=== PATIENT | female | born 1930 | race Caucasian/White ===

== ENCOUNTER 2018-12-16 13:31 | Observation (INO) | payer OTHER, MEDICARE ==
[2018-12-16 14:36] LABS: Absolute Lymphocytes (CBC) 1.6 K/uL (0.7-4.9); Absolute Neutrophil 5.3 K/uL (1.8-8.0); Basophils % 0.4 % (0-1.3); Eosinophils % 3.5 % (0-4.4); Hematocrit 35.3 % (36.0-45.0); Lymphocytes % 19.4 % (15.3-44.8); MPV 8.2 fL (7.6-11.3); Monocytes % 12.1 % (3.3-12.3); RBC Red Blood Cell Count 3.72 M/uL (3.86-4.86)
[2018-12-16] MEDS ORDERED: FAMOTIDINE 20 MG/2 ML VIAL IV ONE (14:43)
[2018-12-16] MEDS ORDERED: NA CHLORIDE 0.9% 500 ML ONE (14:43)
[2018-12-16] MEDS ORDERED: ONDANSETRON 4 MG/2 ML VIAL ONE (14:43)
[2018-12-16 14:49] LABS: Protime INR 1.06
--- NOTE | 2018-12-16 14:49 | RAD REPORT ---
EXAM DESCRIPTION: RAD - Chest Single View - 12/16/2018 2:40 pm CLINICAL HISTORY: CHEST PAIN Chest pain. COMPARISON: No comparisons FINDINGS: Portable technique limits examination quality. Mild interstitial pulmonary edema seen. The heart is normal in size. No displaced fractures. IMPRESSION: Mild interstitial pulmonary edema.
[2018-12-16 14:55] LABS: ALT/SGPT 12 U/L (12-78); AST/SGOT 23 U/L (15-37); Albumin 3.1 g/dL (3.4-5.0); Alkaline Phosphatase 70 U/L (45-117); BUN Blood Urea Nitrogen 26 mg/dL (7-18); Bicarbonate 23 mmol/L (21-32); Bilirubin Direct 0.1 mg/dL (0-0.2); Bilirubin Total 0.4 mg/dL (0.2-1.0); Glucose Level 108 mg/dL (74-106); Lipase 84 U/L (73-393); Magnesium 2.2 mg/dL (1.8-2.4); NT PRO-BNP 104 pg/mL (<450); Potassium 4.2 mmol/L (3.5-5.1); Protein, Total 7.8 g/dL (6.4-8.2); Sodium Level 139 mmol/L (136-145); Troponin (Emerg Dept Use Only) < 0.02 ng/mL (0.0-0.045)
--- NOTE | 2018-12-16 15:01 | RAD REPORT ---
EXAM DESCRIPTION: US - Abdomen Exam Limited - 12/16/2018 2:51 pm CLINICAL HISTORY: bilious emesis COMPARISON: No comparisons FINDINGS: The gallbladder demonstrates no gallstones. No pericholecystic fluid or gallbladder wall t hickening. The common bile duct is normal measuring 3 mm. The liver demonstrates no findings of intrahepatic biliary dilatation. IMPRESSION: Unremarkable examination.
--- NOTE | 2018-12-16 15:29 | RAD REPORT ---
EXAM DESCRIPTION: CT - Abdomen Pelvis Wo Contrast - 12/16/2018 2:59 pm CLINICAL HISTORY: Abdominal pain, bilious emesis COMPARISON: None. TECHNIQUE: Axial [address] imaging of the abdomen and pelvis was performed without IV contrast. No IV contrast was given because of allergy, abnormal renal function, patient refusal or physician re quest. No oral contrast given. All CT scans are performed using dose optimization technique as appropriate and may include automated exposure control or mA/KV adjustment according to patient size. FINDINGS: Prominent fibrotic lung changes are present at each base. No acute lung base finding. No p ericardial thickening or effusion. A large hiatal hernia is present with approximately 40% of the sto mach intrathoracic. Gastric wall assessment is precluded in the herniated portion. The liver, spleen and pancreas show no suspicious findings on non-contrast imaging. Gallbladder and b iliary tree are also without suspicious finding. Benign granulomatous calcifications are present. No hydronephrosis or suspicious renal mass. Upper pole left renal cyst is present. No significant adr enal finding. Isodense renal masses and pyelonephritis cannot be excluded in the absence of IV contra st. The urinary bladder is without significant finding. Herniated portion of the stomach cannot be accurately assessed. Distal stomach shows no wall thickeni ng or mass. No acute small bowel finding. Cecum is low-lying in the pelvic floor distended by a large amount of stool. Right-side colon overall is distended by a large stool volume. Prominent diverticul osis present without diverticulitis. No free air, free fluid or inflammatory stranding. No hernia, ma ss or bulky lymphadenopathy. Prominent disc and bony degenerative changes are present. There is subluxation of L4 due to facet deg enerative change. L4-5 spinal stenosis is present. IMPRESSION: Gallbladder and biliary tree show no suspicious findings. No pancreatic acute process on noncontrast imaging. No abnormality seen to explain bilious emesis. Large stool volume distends the cecum and right side colon. Left-sided diverticulosis present without diverticulitis. Large hiatal hernia with 40% of the stomach intrathoracic. The herniated portion of the stomach is no t accurately assessed. No free air or other surgically emergent finding. Full assessment is limited is the absence of IV contrast.
--- NOTE | 2018-12-16 16:16 | EDPHYS ---
Physician Documentation [facility] Name: Sujey Huerta Age: 88 yrs Sex: Female : 1930 Arrival Date: 12/16/2018 Time: 13:33 Bed 5 Private MD: ED Physician Humberto Barbour HPI: 12/16 15:59 This 88 yrs old Female presents to ER via EMS with complaints of Back Pain, wa Nausea/Vomiting. 15:59 The patient presents with pain that is acute, with no known mechanism of injury, c/o wa back spasms x 3 days. also vomiting yellowish material (calls it 'bile' but describes color as yellow with bitter taste. denies abd pain to me. . The symptoms are located in the upper and lower back. Onset: The symptoms/episode began/occurred 3 day(s) ago. The pain does not radiate. Associated signs and symptoms: Pertinent positives: chest pain, nausea, vomiting, chest 'tightness', Pertinent negatives: abdominal pain, dysuria, fever, headache, hematuria, tingling, weakness. The problem was sustained denies trauma. Modifying factors: The patient symptoms are alleviated by nothing, the patient symptoms are aggravated by nothing. Severity of symptoms: At their worst the symptoms were moderate, in the emergency department the symptoms are unchanged. The patient has not experienced similar symptoms in the past. The patient has not recently seen a physician. Historical: - Allergies: 13:39 Iodine; tw2 - Home Meds: 13:39 levothyroxine 100 mcg tab once daily [Active]; simvastatin 20 mg Oral tab 1 tab once tw2 daily [Active]; losartan-hydrochlorothiazide 100-25 mg Oral tab 1 tab once daily [Active]; - PMHx: 13:39 Hyperlipidemia; Hypertension; Hypothyroidism; tw2 - PSHx: 13:39 Ankle (plate and screws); Appendectomy; Hysterectomy; tw2 - Immunization history:: Adult Immunizations. - Social history:: Smoking status: . - Ebola Screening: : Patient denies travel to an Ebola-affected area in the 21 days before illness onset. - Family history:: not pertinent. - Hospitalizations: : No recent hospitalization is reported. ROS: 16:03 Constitutional: Negative for fever, chills, and weight loss, Eyes: Negative for injury, wa pain, redness, and discharge, ENT: Negative for injury, pain, and discharge, Neck: Negative for injury, pain, and swelling, : Negative for injury, bleeding, discharge, and swelling, MS/Extremity: Negative for injury and deformity, Skin: Negative for injury, rash, and discoloration, Neuro: Negative for headache, weakness, numbness, tingling, and seizure, Psych: Negative for depression, anxiety, suicide ideation, homicidal ideation, and hallucinations. 16:03 Cardiovascular: Positive for chest pain, Negative for edema, orthopnea, palpitations, paroxysmal nocturnal dyspnea. 16:03 Respiratory: Negative for cough, shortness of breath. 16:03 Abdomen/GI: Positive for vomiting, Negative for abdominal pain. 16:03 Back: Positive for pain at rest, pain with movement. 16:03 All other systems are negative. Exam: 16:03 Constitutional: This is a well developed, well nourished patient who is awake, alert, wa and in no acute distress. Head/Face: Normocephalic, atraumatic. Eyes: Pupils equal round and reactive to light, extra-ocular motions intact. Lids and lashes normal. Conjunctiva and sclera are non-icteric and not injected. Cornea within normal limits. Periorbital areas with no swelling, redness, or edema. ENT: Nares patent. No nasal discharge, no septal abnormalities noted. Tympanic membranes are normal and external auditory canals are clear. Oropharynx with no redness, swelling, or masses, exudates, or evidence of obstruction, uvula midline. Mucous membranes moist. Neck: Trachea midline, no thyromegaly or masses palpated, and no cervical lymphadenopathy. Supple, full range of motion without nuchal rigidity, or vertebral point tenderness. No Meningismus. Chest/axilla: Normal chest wall appearance and motion. Nontender with no deformity. No lesions are appreciated. Cardiovascular: Regular rate and rhythm with a normal S1 and S2. No gallops, murmurs, or rubs. Normal PMI, no JVD. No pulse deficits. Respiratory: Lungs have equal breath sounds bilaterally, clear to auscultation and percussion. No rales, rhonchi or wheezes noted. No increased work of breathing, no retractions or nasal flaring. Abdomen/GI: Soft, non-tender, with normal bowel sounds. No distension or tympany. No guarding or rebound. No evidence of tenderness throughout. Back: No spinal tenderness. No costovertebral tenderness. Full range of motion. Skin: Warm, dry with normal turgor. Normal color with no rashes, no lesions, and no evidence of cellulitis. MS/ Extremity: Pulses equal, no cyanosis. Neurovascular intact. Full, normal range of motion. Neuro: Awake and alert, GCS 15, oriented to person, place, time, and situation. Cranial nerves II-XII grossly intact. Motor strength 5/5 in all extremities. Sensory grossly intact. Cerebellar exam normal. Normal gait. Psych: Awake, alert, with orientation to person, place and time. Behavior, mood, and affect are within normal limits. Vital Signs: 13:35 BP 133 / 80; Pulse 99; Resp 17; Temp 98.6(O); Pulse Ox 98% on R/A; tw2 14:34 BP 126 / 75; Pulse 95; Resp 17; Pulse Ox 100% on R/A; tw2 15:26 BP 123 / 70; Pulse 74; Resp 17; Pulse Ox 100% on R/A; tw2 16:10 BP 122 / 68; Pulse 74; Resp 17; Pulse Ox 99% on R/A; tw2 16:59 BP 116 / 73; Pulse 94; Resp 17; Pulse Ox 99% on R/A; tw2 MDM: 13:58 Patient medically screened. la 16:04 Differential diagnosis: r/o bowel obstruction. consider gastritis, gallbladder dz. wa chest tightness. r/o ACS. Data reviewed: vital signs, nurses notes. Test interpretation: by ED physician or midlevel provider: EKG: HR 88. nml axis. no acute dysrhythmic changes noted. 16:06 Test interpretation: by ED physician or midlevel provider: CT abd/pelvis: large hiatal wa hernia with 40% of stomach within the chest cavity. large stool volume causing distension cecum and R side of colon. 16:07 Test interpretation: by ED physician or midlevel provider: CXR: mild interstitial pulm wa edema. RUQ US: no gallstones. nml study. labs BUN 26. GFR 47. H/H 11.9/35.3. 16:12 Response to treatment: the patient's symptoms have markedly improved after treatment. la ED course: will admit for chest pain r/o. no vomiting at time of admit. will continue fluids. zofran prn. protonix. further cardia and GI eval. 16:14 Physician consultation: Noe Dailey MD. Admission orders: after a detailed discussion la of the patient's condition and case, the admit orders are written by me. 12/16 14:17 Order name: Basic Metabolic Panel; Complete Time: 15:10 12/16 14:17 Order name: CBC with Diff; Complete Time: 15:11 12/16 14:17 Order name: LFT's; Complete Time: 15:11 12/16 14:17 Order name: Magnesium; Complete Time: 15:11 12/16 14:17 Order name: NT PRO-BNP; Complete Time: 15:11 12/16 14:17 Order name: PT-INR; Complete Time: 15:11 12/16 14:17 Order name: Troponin (emerg Dept Use Only); Complete Time: 15:11 12/16 14:17 Order name: XRAY Chest (1 view); Complete Time: 15:11 la 12/16 14:17 Order name: Lipase; Complete Time: 15:11 12/16 14:19 Order name: US Abdomen Limited; Complete Time: 15:10 12/16 14:20 Order name: CT Abd/Pelvis - Without Cont; Complete Time: 15:56 la 12/16 16:20 Order name: Urine Microscopic Only la 12/16 16:35 Order name: Urine Dipstick--Ancillary (enter results) 12/16 16:41 Order name: Urine Dipstick-Ancillary; Complete Time: 16:51 EDMS 12/16 14:17 Order name: EKG; Complete Time: 14:18 12/16 14:17 Order name: Cardiac monitoring; Complete Time: 14:18 12/16 14:17 Order name: EKG - Nurse/Tech; Complete Time: 14:18 12/16 14:17 Order name: IV Saline Lock; Complete Time: 14:41 12/16 14:17 Order name: Labs collected and sent; Complete Time: 14:41 12/16 14:17 Order name: O2 Per Protocol; Complete Time: 14:19 12/16 14:17 Order name: O2 Sat Monitoring; Complete Time: 14:19 12/16 14:19 Order name: NPO; Complete Time: 14:28 la 12/16 14:19 Order name: Urine Dipstick-Ancillary (obtain specimen); Complete Time: 16:58 la Administered Medications: 14:30 Drug: Zofran 2 mg Route: IVP; Site: right antecubital; tw2 15:27 Follow up: Response: No adverse reaction; Nausea is decreased tw2 14:33 Drug: Pepcid 20 mg Route: IVP; Site: right antecubital; tw2 15:27 Follow up: Response: No adverse reaction tw2 14:39 Drug: NS 0.9% 500 ml Route: IV; Rate: bolus; Site: right antecubital; tw2 16:00 Follow up: Response: No adverse reaction; IV Status: Completed infusion; IV Intake: tw2 500ml 16:34 Drug: Magnesium Citrate Liquid 300 ml Route: PO; iw 17:23 Follow up: Response: No adverse reaction tw2 Disposition: 12/16/18 16:16 Hospitalization ordered by Noe Dailey for Observation. Preliminary diagnosis are Acute Chest pain, Vomiting, acute back pain. - Bed requested for Telemetry/MedSurg (observation). - Status is Observation. tw2 - Condition is Stable. - Problem is new. - Symptoms have improved. UTI on Admission? No Signatures: Dispatcher [employer] EDMS Rama Elizondo Irene, RN RN Blanca Moreno RN RN 2 Humberto Barbour MD MD la Corrections: (The following items were deleted from the chart) 16:33 16:16 Hospitalization Ordered by Noe Dailey MD for Observation. Preliminary diagnosis bd is Acute Chest pain; Vomiting; acute back pain. Bed requested for Telemetry/MedSurg (observation). Status is Observation. Condition is Stable. Problem is new. Symptoms have improved. UTI on Admission? No. wa 17:23 16:33 12/16/2018 16:16 Hospitalization Ordered by Noe Dailey MD for Observation. tw2 Preliminary diagnosis is Acute Chest pain; Vomiting; acute back pain. Bed requested for Telemetry/MedSurg (observation). Status is Observation. Condition is Stable. Problem is new. Symptoms have improved. UTI on Admission? No. bd
--- NOTE | 2018-12-16 16:16 | ER ---
Nurse's Notes [facility] Name: Sujey Huerta Age: 88 yrs Sex: Female : 1930 Arrival Date: 12/16/2018 Time: 13:33 Bed 5 Private MD: Diagnosis: Acute Chest pain;Vomiting;acute back pain Presentation: 12/16 13:33 Presenting complaint: EMS states: since Saturday pt has complained of severe low back tw2 pain and nausea, she started vomiting this morning and hasnt been able to keep anything down, and not been able to take her medicine this morning, vs stable, Hx: hypertension, hyperlipidemia, hypothroidism. Transition of care: patient was not received from another setting of care. Onset of symptoms was December 16, 2018. Risk Assessment: Do you want to hurt yourself or someone else? Patient reports no desire to harm self or others. Initial Sepsis Screen: Does the patient meet any 2 criteria? No. Patient's initial sepsis screen is negative. Does the patient have a suspected source of infection? No. Patient's initial sepsis screen is negative. Care prior to arrival: None. 13:33 Method Of Arrival: EMS: [facility] tw2 13:33 Acuity: RL 3 tw2 Triage Assessment: 13:35 General: Appears in no apparent distress. Behavior is calm, cooperative, appropriate tw2 for age. Pain: Complains of pain in left low back and right low back. EENT: No signs and/or symptoms were reported regarding the EENT system. Neuro: Level of Consciousness is awake, alert, obeys commands, Oriented to person, place, time, situation. Cardiovascular: Heart tones S1 S2 Capillary refill < 3 seconds Patient's skin is warm and dry. Respiratory: Airway is patent Respiratory effort is even, unlabored, Respiratory pattern is regular, symmetrical, Breath sounds are clear bilaterally. GI: Abdomen is round non-distended, Bowel sounds present X 4 quads. Reports nausea, vomiting. : No signs and/or symptoms were reported regarding the genitourinary system. Derm: No signs and/or symptoms reported regarding the dermatologic system. Musculoskeletal: Circulation, motion, and sensation intact. Range of motion: intact in all extremities. Historical: - Allergies: 13:39 Iodine; tw2 - Home Meds: 13:39 levothyroxine 100 mcg tab once daily [Active]; simvastatin 20 mg Oral tab 1 tab once tw2 daily [Active]; losartan-hydrochlorothiazide 100-25 mg Oral tab 1 tab once daily [Active]; - PMHx: 13:39 Hyperlipidemia; Hypertension; Hypothyroidism; tw2 - PSHx: 13:39 Ankle (plate and screws); Appendectomy; Hysterectomy; tw2 - Immunization history:: Adult Immunizations. - Social history:: Smoking status: . - Ebola Screening: : Patient denies travel to an Ebola-affected area in the 21 days before illness onset. - Family history:: not pertinent. - Hospitalizations: : No recent hospitalization is reported. Screenin:39 Abuse screen: Denies threats or abuse. Nutritional screening: No deficits noted. tw2 Tuberculosis screening: No symptoms or risk factors identified. Fall Risk Secondary diagnosis (15 points) impaired mobility. Assessment: 13:37 Reassessment: see triage assessment. Neuro: Level of Consciousness is awake, alert, tw2 obeys commands. 14:35 Reassessment: Patient appears in no apparent distress at this time. No changes from tw2 previously documented assessment. Patient and/or family updated on plan of care and expected duration. Pain level reassessed. Patient is alert, oriented x 3, equal unlabored respirations, skin warm/dry/pink. 15:26 Reassessment: Patient appears in no apparent distress at this time. No changes from tw2 previously documented assessment. Patient and/or family updated on plan of care and expected duration. Pain level reassessed. Patient is alert, oriented x 3, equal unlabored respirations, skin warm/dry/pink. 16:10 Reassessment: Patient appears in no apparent distress at this time. No changes from tw2 previously documented assessment. Patient and/or family updated on plan of care and expected duration. Pain level reassessed. Patient is alert, oriented x 3, equal unlabored respirations, skin warm/dry/pink. 17:00 Reassessment: Patient appears in no apparent distress at this time. No changes from tw2 previously documented assessment. Patient and/or family updated on plan of care and expected duration. Pain level reassessed. Patient is alert, oriented x 3, equal unlabored respirations, skin warm/dry/pink. Vital Signs: 13:35 BP 133 / 80; Pulse 99; Resp 17; Temp 98.6(O); Pulse Ox 98% on R/A; tw2 14:34 BP 126 / 75; Pulse 95; Resp 17; Pulse Ox 100% on R/A; tw2 15:26 BP 123 / 70; Pulse 74; Resp 17; Pulse Ox 100% on R/A; tw2 16:10 BP 122 / 68; Pulse 74; Resp 17; Pulse Ox 99% on R/A; tw2 16:59 BP 116 / 73; Pulse 94; Resp 17; Pulse Ox 99% on R/A; tw2 ED Course: 13:33 Patient arrived in ED. tw2 13:33 Bed in low position. Call light in reach. Side rails up X2. patient monitor on. Pulse tw2 ox on. NIBP on. Warm blanket given. 13:33 Arm band placed on. tw2 13:35 Triage completed. tw2 13:39 Blanca Moreno, JOSHUA is Primary Nurse. tw2 13:58 Humberto Barbour MD is Attending Physician. wa 14:30 Inserted saline lock: 22 gauge in right antecubital area, using aseptic technique. tw2 Blood collected. 14:39 XRAY Chest (1 view) In Process Unspecified. EDMS 14:48 EKG done, by outboard technician. reviewed by Humberto Barbour MD. tc 14:51 US Abdomen Limited In Process Unspecified. EDMS 14:59 CT Abd/Pelvis - Without Cont In Process Unspecified. EDMS 16:15 Noe Dailey MD is Hospitalizing Provider. wa 17:01 No provider procedures requiring assistance completed. Patient admitted, IV remains in tw2 place. Administered Medications: 14:30 Drug: Zofran 2 mg Route: IVP; Site: right antecubital; tw2 15:27 Follow up: Response: No adverse reaction; Nausea is decreased tw2 14:33 Drug: Pepcid 20 mg Route: IVP; Site: right antecubital; tw2 15:27 Follow up: Response: No adverse reaction tw2 14:39 Drug: NS 0.9% 500 ml Route: IV; Rate: bolus; Site: right antecubital; tw2 16:00 Follow up: Response: No adverse reaction; IV Status: Completed infusion; IV Intake: tw2 500ml 16:34 Drug: Magnesium Citrate Liquid 300 ml Route: PO; iw 17:23 Follow up: Response: No adverse reaction tw2 Intake: 16:00 IV: 500ml; Total: 500ml. tw2 Outcome: 16:16 Decision to Hospitalize by Provider. dc 17:01 Admitted to Med/surg accompanied by tech, via wheelchair, room 416, with chart, Report tw2 called to Devante<JOSHUA 17:01 Condition: stable 17:01 Instructed on the need for admit, Demonstrated understanding of 17:23 Patient left the ED. tw2 Signatures: Dispatcher [employer] Thao Wesley, JOSHUA RN iw Nereyda Sinhg, dressing machine operator EKG Blanca Carrera RN RN tw2 Humberto Barbour MD MD dc
[2018-12-16] MEDS ORDERED: MAGNESIUM CITRATE 300 ML BOT ONE (16:38)
[2018-12-16 16:41] LABS: Urine Blood TRACE (NEG); Urine Glucose NEGATIVE (NEG); Urine Protein NEGATIVE (NEG); Urine Specific Gravity 1.015 (1.005-1.030)
--- NOTE | 2018-12-16 17:23 | P.HP ---
Certification for Inpatient Patient admitted to: Observation With expected LOS: <2 Midnights Practitioner: I am a practitioner with admitting privileges, knowledge of patient current condition, hospital course, and medical plan of care. Services: Services provided to patient in accordance with Admission requirements found in Title 42 Section 412.3 of the Code of Federal Regulations Patient History Date of Service: 12/16/18 Reason for admission: Back spasms History of Present Illness: This is an 88-year-old female with history of hypertension and hypothyroid admitted for back spasms and chest pain. Per patient, she started having these back spasms on Saturday across her shoulder bilaterally and low back. She has tried taking her thyroid medicine other medications after that and she stated that she would throw up. She states that she has not eaten anything since then. She continues to have yellow vomiting, last episode this morning. No blood noted in the vomitus. States that she does not have any abdominal pain, constipation, diarrhea, hematochezia, dizziness, headache, vision changes, syncope/presyncope. She states that she has never had back spasms like this before. In the ER, she was hemodynamically stable with vital signs of 116/73, heart rate of 94, respirations of 17 and satting 99% on room air. Her labs were unremarkable. Abdominal pelvis CT with hiatal hernia with 40% stomach intrathoracic. Abdominal ultrasound was normal. A chest x-ray done in the ER showed mild interstitial pulmonary edema. At the time of my exam, patient was alert oriented x3, in no acute distress and hemodynamically stable. She denied any chest pain at this time. Stated that she continued to have the back spasms, especially when she moved. She has not received any pain medications in the ER. She states that she is a DNR. Allergies No Known Allergies Allergy (Unverified 12/23/15 13:02) Home medications list reviewed: Yes Home Medications: Amlodipine [Norvasc] 10 mg PO DAILY 12/16/18 Levothyroxine [Synthroid] 75 mcg PO [id number] 12/16/18 Lisinopril [Prinivil] 10 mg PO DAILY 12/16/18 Ropinirole HCl [Requip] 0.25 mg PO BEDTIME 12/16/18 Simvastatin 20 mg PO BEDTIME 12/16/18 Review of Systems 10-point ROS is otherwise unremarkable Physical Examination - Physical Exam General: Alert, In no apparent distress, Oriented x3 HEENT: Atraumatic, PERRLA, Mucous membr. moist/pink, EOMI, Sclerae nonicteric Neck: Supple, 2+ carotid pulse no bruit, No LAD, Without JVD or thyroid abnormality Respiratory: Clear to auscultation bilaterally, Normal air movement Cardiovascular: Regular rate/rhythm, Normal S1 S2 Gastrointestinal: Normal bowel sounds, No tenderness Musculoskeletal: No tenderness Integumentary: No rashes Neurological: Normal gait, Normal speech, Normal strength at 5/5 x4 extr, Normal tone, Normal affect Lymphatics: No axilla or inguinal lymphadenopathy - Studies Laboratory Data (last 24 hrs) 12/16/18 14:25: PT 12.5, INR 1.06 12/16/18 14:25: WBC 8.2, Hgb 11.9 L, Hct 35.3 L, Plt Count 312 12/16/18 14:25: Sodium 139, Potassium 4.2, BUN 26 H, Creatinine 1.10, Glucose 108 H, Magnesium 2.2, Total Bilirubin 0.4, AST 23, ALT 12, Alkaline Phosphatase 70, Lipase 84 Assessment and Plan - Problems (Diagnosis) (1) Chest pain Current Visit: Yes Status: Acute (2) Vomiting Current Visit: Yes Status: Acute (3) Back pain Current Visit: Yes Status: Acute (4) Hypertension Current Visit: Yes Status: Acute (5) Hypothyroid Current Visit: Yes Status: Acute (6) Hyperlipidemia Current Visit: Yes Status: Acute - Plan This is an 88-year-old female with: Chest pain, rule out. Chest pain is now resolved. Trend troponins. Will continue to monitor. Chest pain guidelines: FERNANDEZ-inhibitor, statin, aspirin. Hold beta-joycelyn at this time. May require an echo. We will see how she does prior to ordering an echo. Acute back spasms Tramadol for pain control at this time. Will get physical therapy to work with patient Hypertension Will restart home medications. Stable at this time Hypothyroid Will restart home medications. Stable at this time Hyperlipidemia Restart home statin. Stable at this time Hiatal hernia Will start Protonix oral. Will need to discuss with patient regarding surgery consulted. Unsure if patient would like any surgical intervention at this time. Patient states that she is a DNR. We will discuss further with patient and see if we need to get general surgery. Treat conservatively at this time. DVT prophylaxis: Lovenox GI prophylaxis: Protonix Diet: Heart healthy Disposition: Admit to floor for observation. Trend troponins. If continues remain stable overnight, likely discharge home in the next 24 hr. - Advance Directives Does patient have a Living Will: No Does patient have a Durable POA for Healthcare: No - Code Status/Comfort Care Code Status Assessed: Yes Code Status: Do Not Resuscitate
[2018-12-16] MEDS ORDERED: TRAMADOL HCL 50 MG TAB PO PRN (17:47)
[2018-12-16 17:52] LABS: Urine Bacteria >50 /HPF (<20); Urine Culture Reflex Order REFLEXED; Urine RBC <5 /HPF (NONE SEEN)
[2018-12-16] MEDS: ONDANSETRON 4 MG/2 ML VIAL IV PRN ×2 (18:11→22:30)
[2018-12-16] MEDS: ENOXAPARIN 40 MG/0.4 ML SQ SCH (18:17)
[2018-12-16] MEDS ORDERED: HOME MED 1 EA UNK (Simvastatin [Simvastatin] 20 MG) PO SCH (21:00)
[2018-12-16] MEDS: ATORVASTATIN 10 MG TAB PO SCH (21:44)
[2018-12-16] MEDS: ROPINIROLE HCL 0.25 MG TAB PO SCH (21:44)
[2018-12-17] MEDS: PANTOPRAZOLE 40MG TABLET PO SCH (05:02)
[2018-12-17] MEDS: LEVOTHYROXINE SOD 0.075 MG TAB PO SCH (05:02)
[2018-12-17 06:13] LABS: Absolute Lymphocytes (CBC) 2.3 K/uL (0.7-4.9); Absolute Monocytes 1.1 K/uL (0.1-1.3); Absolute Neutrophil 4.3 K/uL (1.8-8.0); Basophils % 0.7 % (0-1.3); Eosinophils % 3.4 % (0-4.4); Hematocrit 33.5 % (36.0-45.0); MPV 8.2 fL (7.6-11.3); Monocytes % 13.4 % (3.3-12.3)
[2018-12-17 06:33] LABS: Bilirubin Total 0.4 mg/dL (0.2-1.0); Potassium 4.4 mmol/L (3.5-5.1); Protein, Total 7.3 g/dL (6.4-8.2)
[2018-12-17] MEDS: LISINOPRIL 10 MG TAB PO SCH (08:23)
[2018-12-17] MEDS: ENOXAPARIN 40 MG/0.4 ML SQ SCH (08:23)
[2018-12-17] MEDS: AMLODIPINE 10 MG TAB PO SCH (08:24)
[2018-12-17] MEDS ORDERED: CYCLOBENZAPRINE 10 MG TAB PO PRN (09:57)
[2018-12-17] MEDS ORDERED: DOCUSATE NA 100 MG CAP PO ONE (09:57)
--- NOTE | 2018-12-17 11:14 | P.PN ---
Subjective Date of Service: 12/17/18 Chief Complaint: Back spasms Subjective: Improving Patient seen and examined at bedside. Daughter in law at bedside. Chart reviewed and case discussed with nursing staff. Patient states that she was able to ambulate little bit more today, went to the bathroom and back to bed. States that back spasms have improved, though continued to be here. States that she feels it is generalized weakness. Physical therapy is not evaluated as of yet. No other acute events noted overnight Review of Systems 10-point ROS is otherwise unremarkable Physical Examination - Vital Signs Temperature: 97.7 F Blood Pressure: 123/72 Pulse: 81 Respirations: 17 Pulse Ox (%): 97 - Physical Exam General: Alert, In no apparent distress, Oriented x3 HEENT: Atraumatic, PERRLA, EOMI Neck: Supple, JVD not distended Respiratory: Clear to auscultation bilaterally, Normal air movement Cardiovascular: Regular rate/rhythm, Normal S1 S2 Gastrointestinal: Normal bowel sounds, No tenderness Musculoskeletal: No tenderness Integumentary: No rashes Neurological: Normal speech, Normal tone, Normal affect Lymphatics: No axilla or inguinal lymphadenopathy - Studies Laboratory Data (last 24 hrs) 12/16/18 14:25: PT 12.5, INR 1.06 12/16/18 14:25: WBC 8.2, Hgb 11.9 L, Hct 35.3 L, Plt Count 312 12/16/18 14:25: Sodium 139, Potassium 4.2, BUN 26 H, Creatinine 1.10, Glucose 108 H, Magnesium 2.2, Total Bilirubin 0.4, AST 23, ALT 12, Alkaline Phosphatase 70, Lipase 84 Assessment And Plan - Current Problems (Diagnosis) (1) Chest pain Current Visit: Yes Status: Acute (2) Vomiting Current Visit: Yes Status: Acute (3) Back pain Current Visit: Yes Status: Acute (4) Hypertension Current Visit: Yes Status: Acute (5) Hypothyroid Current Visit: Yes Status: Acute (6) Hyperlipidemia Current Visit: Yes Status: Acute (7) Urinary tract infection Current Visit: Yes Status: Suspected Qualifiers: Urinary tract infection type: acute cystitis Hematuria presence: without hematuria Qualified Code(s): N30.00 - Acute cystitis without hematuria (8) Constipation Current Visit: Yes Status: Acute Qualifiers: Constipation type: unspecified constipation type Qualified Code(s): K59.00 - Constipation, unspecified - Plan This is an 88-year-old female with: Chest pain, ruled out ACS Chest pain is now resolved. Troponins remain negative Will continue to monitor. Chest pain guidelines: FERNANDEZ-inhibitor, statin, aspirin. Hold beta-joycelyn at this time. Urine suspicious for a urinary tract infection Per patient, she is having some changes in urination. States that she feels like she cannot empty her bladder properly. Will start antibiotics for suspected UTI. Urine cultures are pending and will adjust antibiotics pending cultures Acute back spasms Trial of Flexeril 5 mg b.i.d. as needed for muscle spasms. Physical therapy evaluation pending. Social work consulted for home health with physical therapy Hypertension Will continue home medications. Stable at this time Hypothyroid Will continue home medications. Stable at this time Hyperlipidemia Continue home statin. Stable at this time Hiatal hernia Will continue Protonix oral. Will need to discuss with patient regarding surgery consulted. Unsure if patient would like any surgical intervention at this time. Patient states that she is a DNR. We will discuss further with patient and see if we need to get general surgery. Treat conservatively at this time. Constipation States she has not had a bowel movement in the past 4 days. Abdomen nondistended that this time. Will try Colace along with prune juice cocktail. DVT prophylaxis: Lovenox GI prophylaxis: Protonix Diet: Heart healthy Disposition: Pending physical therapy evaluation, improvement in muscle spasm. Possible discharge in the next 24-48 hr
[2018-12-17] MEDS: CEFTRIAXONE/SWI 1gm 1 GM/10 ML SYR IV SCH (12:39)
[2018-12-17] MEDS: ATORVASTATIN 10 MG TAB PO SCH (20:24)
[2018-12-17] MEDS: ROPINIROLE HCL 0.25 MG TAB PO SCH (20:25)
[2018-12-18 04:47] LABS: Absolute Lymphocytes (CBC) 2.7 K/uL (0.7-4.9); Absolute Monocytes 1.5 K/uL (0.1-1.3); Absolute Neutrophil 4.7 K/uL (1.8-8.0); Basophils % 0.5 % (0-1.3); Eosinophils % 7.4 % (0-4.4); Hematocrit 31.8 % (36.0-45.0); Lymphocytes % 27.5 % (15.3-44.8); MPV 7.9 fL (7.6-11.3); Monocytes % 15.7 % (3.3-12.3); RBC Red Blood Cell Count 3.35 M/uL (3.86-4.86)
[2018-12-18 05:01] LABS: Albumin 2.9 g/dL (3.4-5.0); Bilirubin Total 0.4 mg/dL (0.2-1.0); Potassium 4.4 mmol/L (3.5-5.1); Protein, Total 7.1 g/dL (6.4-8.2)
[2018-12-18 05:10] LABS: Blood Morphology Comment NOT SEEN (NOT SEEN); Platelet Estimate ADEQ; Urine White Blood Cell Casts OK
[2018-12-18] MEDS: LEVOTHYROXINE SOD 0.075 MG TAB PO SCH (05:33)
[2018-12-18] MEDS: PANTOPRAZOLE 40MG TABLET PO SCH (05:33)
[2018-12-18] MEDS: ENOXAPARIN 40 MG/0.4 ML SQ SCH (08:53)
[2018-12-18] MEDS: LISINOPRIL 10 MG TAB PO SCH (08:53)
[2018-12-18] MEDS: AMLODIPINE 10 MG TAB PO SCH (08:53)
[2018-12-18] MEDS: CEFTRIAXONE/SWI 1gm 1 GM/10 ML SYR IV SCH (08:54)
[2018-12-18] MEDS ORDERED: CEFTRIAXONE 1 GM/NS 50 ML 1 GM/50 ML BAG IV SCH (09:00)
--- NOTE | 2018-12-18 09:38 | P.SSS ---
Patient History Date of Service: 12/18/18 Primary Care Provider: Chris Guerra Reason for admission: Back spasms History of Present Illness: This is an 88-year-old female with history of hypertension and hypothyroid admitted for back spasms and chest pain. Per patient, she started having these back spasms on Saturday across her shoulder bilaterally and low back. She has tried taking her thyroid medicine other medications after that and she stated that she would throw up. She states that she has not eaten anything since then. She continues to have yellow vomiting, last episode this morning. No blood noted in the vomitus. States that she does not have any abdominal pain, constipation, diarrhea, hematochezia, dizziness, headache, vision changes, syncope/presyncope. She states that she has never had back spasms like this before. In the ER, she was hemodynamically stable with vital signs of 116/73, heart rate of 94, respirations of 17 and satting 99% on room air. Her labs were unremarkable. Abdominal pelvis CT with hiatal hernia with 40% stomach intrathoracic. Abdominal ultrasound was normal. A chest x-ray done in the ER showed mild interstitial pulmonary edema. At the time of my exam, patient was alert oriented x3, in no acute distress and hemodynamically stable. She denied any chest pain at this time. Stated that she continued to have the back spasms, especially when she moved. She has not received any pain medications in the ER. She states that she is a DNR. Allergies No Known Allergies Allergy (Unverified 12/23/15 13:02) Home medications list reviewed: Yes Home Medications: Amlodipine [Norvasc*] 10 mg PO DAILY 12/16/18 Levothyroxine [Synthroid*] 75 mcg PO [id number] 12/16/18 Lisinopril [Prinivil*] 10 mg PO DAILY 12/16/18 Ropinirole HCl [Requip*] 0.25 mg PO BEDTIME 12/16/18 Simvastatin 20 mg PO BEDTIME 12/16/18 - Past Medical/Surgical History Has patient received pneumonia vaccine in the past: Yes Diabetic: No -: Hypertension- since 36 years old -: Hyperlipidemia -: Hypothyroidism -: Hiatal hernia -: Hysterectomy -: Appendectomy- at 18 years old. -: D&C -: Ovarian Cystectomy - Social History Smoking Status: Never smoker Alcohol use: Yes CD- Drugs: No Caffeine use: Yes Place of Residence: Home Review of Systems 10-point ROS is otherwise unremarkable Physical Examination - Vital Signs Temperature: 98.1 F Blood Pressure: 123/62 Pulse: 87 Respirations: 19 Pulse Ox (%): 97 - Physical Exam General: Alert, In no apparent distress, Oriented x3 HEENT: Atraumatic, PERRLA, Mucous membr. moist/pink, EOMI, Sclerae nonicteric Neck: Supple, 2+ carotid pulse no bruit, No LAD, Without JVD or thyroid abnormality Respiratory: Clear to auscultation bilaterally, Normal air movement Cardiovascular: Regular rate/rhythm, Normal S1 S2 Gastrointestinal: Normal bowel sounds, No tenderness Musculoskeletal: No tenderness Integumentary: No rashes Neurological: Normal gait, Normal speech, Normal strength at 5/5 x4 extr, Normal tone, Normal affect Lymphatics: No axilla or inguinal lymphadenopathy - Diagnosis (Problem(s)) (1) Chest pain Current Visit: Yes Status: Acute (2) Vomiting Current Visit: Yes Status: Acute (3) Back pain Current Visit: Yes Status: Acute (4) Hypertension Current Visit: Yes Status: Acute (5) Hypothyroid Current Visit: Yes Status: Acute (6) Hyperlipidemia Current Visit: Yes Status: Acute (7) Urinary tract infection Current Visit: Yes Status: Suspected Qualifiers: Urinary tract infection type: acute cystitis Hematuria presence: without hematuria Qualified Code(s): N30.00 - Acute cystitis without hematuria (8) Constipation Current Visit: Yes Status: Acute Qualifiers: Constipation type: unspecified constipation type Qualified Code(s): K59.00 - Constipation, unspecified (9) Hiatal hernia Current Visit: Yes Status: Acute Treatment Summary: Patient was admitted for chest pain, R/O.ACS was ruled out - patient not really endorsing chest pain in the hospital. Troponin negative x 3. She did complain of generalized weakness, back spasms, decreased appetite and constipation. She was given flexeril, PT was ordered. She worked well with physical therapy. PT recommended no need for further PT. She did well throughout the stay. She did have a finding of hiatal hernia on her CT. She was given PPI and treated conservatively. Her physical exam remained unremarkable throughout the stay. She was recommended to follow up as an outpatient with general surgery. She is unsure if she would like surgery at this point. Prior to discharge, she was ambulating without concerns, she was tolerating a PO diet, her weakness had improved. She was AAOx3, in no acute distress and hemodynamically stable. Her diagnosis/treatment plan was discussed with patient. All questions were answered and she verbalized understanding. She was discharged home in a safe and stable manner. She was recommended that the follow up with her primary care doctor in 2-3 days. She stated that her PCP was in [place]. She was offered a list of PCP's in the area but stated that she had a very complicated living situation as she lived in [place] but her PCP was in [place], where her daughter lives. She has plans on moving to [place] in the near future. She is unsure when. She refused list of local PCP and stated that her daughter will take her for a follow up in [place], [place]. - Disposition Discharge Date: 12/18/18 Disposition: ROUTINE DISCHARGE Condition: GOOD Patient Discharge Instructions: Please follow up with your primary care physician in 2-3 days. Please follow up with General surgery as an outpatient for your hiatal hernia. You can continue protonix for heart burn type symptoms. Please discuss with your primary care regarding Home health services for home physical therapy. Please Return to the Emergency room for worsening symptoms. Diet: AHA Activity: Ad rei Time Spent Managing Pts Care (In Minutes): 55
[2018-12-18] MEDS ORDERED: BISACODYL 10 MG RECTAL SUPP PR ONE (10:14)
[2018-12-19] MEDS ORDERED: ENOXAPARIN 30 MG/0.3 ML SQ SCH (09:00)
== END 2018-12-18 12:48 | disposition home or self-care (01) ==
LOC: ER 13:31 → ERHOLD 16:15 → 4TH 17:02
PROVIDERS: ADMIT Family Medicine; ATTEND Family Medicine
DX: R07.9 Chest pain, unspecified (principal); R11.10 Vomiting, unspecified; M62.830 Muscle spasm of back; I10 Essential (primary) hypertension; E03.9 Hypothyroidism, unspecified; E78.5 Hyperlipidemia, unspecified; Z66 Do not resuscitate; K59.00 Constipation, unspecified; K44.9 Diaphragmatic hernia without obstruction or gangrene
CPT/HCPCS: 96361; 93005; 87088; 85025 ×3; 87086; 80048; 36415 ×2; 83735; 85610; 80076; 84484 ×3; 83690; 80053 ×2; 83880; 74176; 71045; 76705; 97162; 94760 ×3; 96375; 96374; 99285; J1650 ×4; J0696 ×2; J2405 ×3; G0378 ×2; 81003; 81015